=== PATIENT | male | born 1990 | race Hispanic/Latino ===

== ENCOUNTER 2016-09-04 19:39 | Emergency (ER) | payer OTHER ==
[2016-09-04] MEDS ORDERED: ONDANSETRON 4 MG ORAL DISINTEGRATING TAB (S0181) As Ordered ONE (21:52)
--- NOTE | 2016-09-04 22:00 | EDDOCDS ---
Nurse's Notes [facility] Name: Connor Benítez Age: 26 yrs Sex: Male : 1990 Arrival Date: 09/04/2016 Time: 19:39 Bed TR8 Private MD: DK MALLOY Diagnosis: Nausea and vomiting;Diarrhea, unspecified Presentation: 09/04 19:47 Presenting complaint: Patient states: "I think I have food poisoning." Pt reports ld5 vomiting for past 3 hours. Denies pain. "I just feel hot". Adult Sepsis Screening: The patient does not have new or worsening altered mentation. Patient's respiratory rate is less than 22. Systolic blood pressure is greater than 100. Patient has a qSOFA score of 0- Negative Sepsis Screen. Suicide/Homicide risk assessment- the patient denies having any suicidal and/or homicidal ideations and does not present with any other emotional, behavioral or mental health complaints. 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 Transition of care: patient was not received from another setting of care. 19:47 Acuity: TRAVIS Level 3 ld5 19:47 Method Of Arrival: Walkin/Carried/Asstd ld5 Triage Assessment: 19:48 General: Appears uncomfortable. Pain: Denies pain. HIV screening NA for this visit ld5 Offered previously. Neurological: Level of Consciousness is awake, alert. GI: Reports nausea, vomiting, since past 3 hours. Historical: - Allergies: no known allergies; - Home Meds: 1. none - PMHx: none; - PSHx: none; - Social history: Smoking status: Patient states was never smoker of tobacco. No barriers to communication noted, The patient speaks fluent Greenlandic, Speaks appropriately for age. - Family history: Not pertinent. - : The pt / caregiver states he / she is not on anticoagulants. Home medication list is obtained from the patient. - Exposure Risk Screening:: None identified. Screenin:58 Screening information is obtained from the patient. Fall risk: No risks identified. ld5 Assistance ADL's: requires no assistance with activities of daily living. Abuse/DV Screen: The patient / caregiver reports he/she is: not in a situation that causes fear, pain or injury. Nutritional screening: No deficits noted. Advance Directives: Currently, there is no health care proxy. home support is adequate. Assessment: 21:58 General: Appears in no apparent distress. Pain: Denies pain. Neurological: Level of ld5 Consciousness is awake, alert. Respiratory: Airway is patent Respiratory effort is even, unlabored. GI: Reports nausea, vomiting. Vital Signs: 19:42 BP 136 / 86; Pulse 86; Resp 16; Temp 97.6(O); Pulse Ox 100% ; Weight 73.94 kg; Height 5 cmb ft. 8 in. (172.72 cm); Pain 2/10; 19:42 Body Mass Index 24.78 (73.94 kg, 172.72 cm) cmb Vitals: 19:42 Log In Time: September 04, 2016 at 19:39. cmb ED Course: 19:41 Patient visited by Maria Del Rosario Ramos. cmb 19:41 DK MALLOY is Private Physician. cmb 19:41 Patient moved to Waiting cmb 19:42 Patient moved to Pre RCE cmb 19:47 Triage Initiated ld5 19:48 Patient visited by Mehreen Adam RN. ld5 21:27 Patient moved to Triage 2 cz 21:41 Alex Brown PA is PHCP. btw 21:41 Renzo Isaacs DO is Attending Physician. btw 21:42 Patient visited by Alex Brown PA. btw 21:54 DK MALLOY is Referral Physician. btw 21:58 The patient / caregiver is instructed regarding the plan of care and ED course. Patient ld5 has correct armband on for positive identification. 21:58 No IV's were initiated during this patient's visit. No procedures done that require ld5 assistance. 21:59 Patient moved to TR8 cz 22:00 Patient visited by Mehreen Adam,ROE. ld5 Administered Medications: 21:56 Drug: Ondansetron ODT (Peds >25kg) 4 mg [ondansetron 4 mg disintegrating tablet (1 cz tabs)] Route: PO; Order Results: There are currently no results for this order. Outcome: 21:55 Discharge ordered by Provider. btw 21:58 Discharge Assessment: Patient awake, alert and oriented x 3. No cognitive and/or ld5 functional deficits noted. Patient verbalized understanding of disposition instructions. patient administered narcotics - no. The following High Risk Discharge criteria are identified: None. Discharged to home ambulatory. Condition: stable. Discharge instructions given to patient, Instructed on discharge instructions, follow up and referral plans. medication usage, Demonstrated understanding of instructions, medications, Pt was receptive of discharge instructions/ teaching. Prescriptions given X 1. No special radiology studies were completed. Property :Personal belongings accompany Pt. 21:59 Patient left the ED. ld5 Signatures: Lyle Weinberg RN RN cz Alex Brown PA PA btw Dickerson, Laura, RN RN ld5 Maria Del Rosario Ramos MTDOlivia
--- NOTE | 2016-09-04 22:00 | EDDOCDS ---
Physician Documentation [facility] Name: Connor Benítez Age: 26 yrs Sex: Male : 1990 Arrival Date: 09/04/2016 Time: 19:39 Bed TR8 Private MD: DK MALLOY Disposition: 09/04/16 21:55 Discharged to Home/Self Care. Impression: Nausea and vomiting, Diarrhea, unspecified. - Condition is Stable. - Discharge Instructions: Viral Gastroenteritis, [id number]. - Prescriptions for ZOFRAN ODT 4 mg - dissolve 1 tablet by ORAL route 4 times per day As needed do not chew, do not swallow whole; 10 tablet. - Medication Reconciliation, Local Pharmacy Hours form. - Follow up: DK MALLOY; When: Call to arrange an appointment; Reason: Further diagnostic work-up, Recheck today's complaints, Continuance of care. - Problem is new. - Symptoms are unchanged. Historical: - Allergies: no known allergies; - Home Meds: 1. none - PMHx: none; - PSHx: none; - Social history: Smoking status: Patient states was never smoker of tobacco. No barriers to communication noted, The patient speaks fluent Kenyan, Speaks appropriately for age. - Family history: Not pertinent. - : The pt / caregiver states he / she is not on anticoagulants. Home medication list is obtained from the patient. - Exposure Risk Screening:: None identified. Vital Signs: 09/04 19:42 BP 136 / 86; Pulse 86; Resp 16; Temp 97.6(O); Pulse Ox 100% ; Weight 73.94 kg / 163.01 cmb lbs; Height 5 ft. 8 in. (172.72 cm); Pain 2/10; 19:42 Body Mass Index 24.78 (73.94 kg, 172.72 cm) cmb MDM: 21:48 Ondansetron ODT (Peds >25kg) Oral Disintegrating Tablet 4 mg PO once; 1 tab now and 1 btw in 6-8 hrs. x2 ordered. Administered Medications: 21:56 Drug: Ondansetron ODT (Peds >25kg) 4 mg [ondansetron 4 mg disintegrating tablet (1 cz tabs)] Route: PO; Signatures: WolfendenAlex PA PA btw Dickerson, Laura,RN RN ld5 Lyle Weinberg RN cz MTDD
--- NOTE | 2016-09-06 23:00 | EDDOCDS ---
Nurse's Notes [facility] Name: Connor Benítez Age: 26 yrs Sex: Male : 1990 Arrival Date: 09/04/2016 Time: 19:39 Bed TR8 Private MD: DK MALLOY Diagnosis: Nausea and vomiting;Diarrhea, unspecified Presentation: 09/04 19:47 Presenting complaint: Patient states: "I think I have food poisoning." Pt reports ld5 vomiting for past 3 hours. Denies pain. "I just feel hot". Adult Sepsis Screening: The patient does not have new or worsening altered mentation. Patient's respiratory rate is less than 22. Systolic blood pressure is greater than 100. Patient has a qSOFA score of 0- Negative Sepsis Screen. Suicide/Homicide risk assessment- the patient denies having any suicidal and/or homicidal ideations and does not present with any other emotional, behavioral or mental health complaints. Status: The patient is an active duty field services director. Transition of care: patient was not received from another setting of care. 19:47 Acuity: TRAVIS Level 3 ld5 19:47 Method Of Arrival: Walkin/Carried/Asstd ld5 Triage Assessment: 19:48 General: Appears uncomfortable. Pain: Denies pain. HIV screening NA for this visit ld5 Offered previously. Neurological: Level of Consciousness is awake, alert. GI: Reports nausea, vomiting, since past 3 hours. Historical: - Allergies: no known allergies; - Home Meds: 1. none - PMHx: none; - PSHx: none; - Social history: Smoking status: Patient states was never smoker of tobacco. No barriers to communication noted, The patient speaks fluent Uruguayan, Speaks appropriately for age. - Family history: Not pertinent. - : The pt / caregiver states he / she is not on anticoagulants. Home medication list is obtained from the patient. - Exposure Risk Screening:: None identified. Screenin:58 Screening information is obtained from the patient. Fall risk: No risks identified. ld5 Assistance ADL's: requires no assistance with activities of daily living. Abuse/DV Screen: The patient / caregiver reports he/she is: not in a situation that causes fear, pain or injury. Nutritional screening: No deficits noted. Advance Directives: Currently, there is no health care proxy. home support is adequate. Assessment: 21:58 General: Appears in no apparent distress. Pain: Denies pain. Neurological: Level of ld5 Consciousness is awake, alert. Respiratory: Airway is patent Respiratory effort is even, unlabored. GI: Reports nausea, vomiting. Vital Signs: 19:42 BP 136 / 86; Pulse 86; Resp 16; Temp 97.6(O); Pulse Ox 100% ; Weight 73.94 kg; Height 5 cmb ft. 8 in. (172.72 cm); Pain 2/10; 19:42 Body Mass Index 24.78 (73.94 kg, 172.72 cm) cmb Vitals: 19:42 Log In Time: September 04, 2016 at 19:39. cmb ED Course: 19:41 Patient visited by Maria Del Rosario Ramos. cmb 19:41 DK MALLOY is Private Physician. cmb 19:41 Patient moved to Waiting cmb 19:42 Patient moved to Pre RCE cmb 19:47 Triage Initiated ld5 19:48 Patient visited by Mehreen Adam RN. ld5 21:27 Patient moved to Triage 2 cz 21:41 Alex Brown PA is PHCP. btw 21:41 Renzo Isaacs DO is Attending Physician. btw 21:42 Patient visited by Alex Brown PA. btw 21:54 DK MALLOY is Referral Physician. btw 21:58 The patient / caregiver is instructed regarding the plan of care and ED course. Patient ld5 has correct armband on for positive identification. 21:58 No IV's were initiated during this patient's visit. No procedures done that require ld5 assistance. 21:59 Patient moved to TR8 cz 22:00 Patient visited by Mehreen Adam,ROE. ld5 09/05 00:07 Patient name changed from Connor\\S\\\\S\\Walkerrivera\\S\\ to Connor\\S\\Gurinder\\S\\Walkerrivera. EDMS 00:09 [facility] Payment Agreement was scanned into [employer] and attached to record. gjb 12:41 T-Sheet-- Draft Copy was scanned into [employer] and attached to record. gb Administered Medications: 09/04 21:56 Drug: Ondansetron ODT (Peds >25kg) 4 mg [ondansetron 4 mg disintegrating tablet (1 cz tabs)] Route: PO; Order Results: There are currently no results for this order. Outcome: 21:55 Discharge ordered by Provider. btw 21:58 Discharge Assessment: Patient awake, alert and oriented x 3. No cognitive and/or ld5 functional deficits noted. Patient verbalized understanding of disposition instructions. patient administered narcotics - no. The following High Risk Discharge criteria are identified: None. Discharged to home ambulatory. Condition: stable. Discharge instructions given to patient, Instructed on discharge instructions, follow up and referral plans. medication usage, Demonstrated understanding of instructions, medications, Pt was receptive of discharge instructions/ teaching. Prescriptions given X 1. No special radiology studies were completed. Property :Personal belongings accompany Pt. 21:59 Patient left the ED. ld5 Signatures: Dispatcher [employer] EDMS Lyle Weinberg, ROE RN cz Arleen Muir, Reg Reg Alex Gonzalez PA PA btw Mehreen Adam RN RN ld5 Maria Del Rosario Ramos Gabriela gjb Chart Complete [facility]ITALOlivia
--- NOTE | 2016-09-06 23:00 | EDDOCDS ---
Physician Documentation [facility] Name: Connor Benítez Age: 26 yrs Sex: Male : 1990 Arrival Date: 09/04/2016 Time: 19:39 Bed TR8 Private MD: DK MALLOY Disposition: 09/04/16 21:55 Discharged to Home/Self Care. Impression: Nausea and vomiting, Diarrhea, unspecified. - Condition is Stable. - Discharge Instructions: Viral Gastroenteritis, [id number]. - Prescriptions for ZOFRAN ODT 4 mg - dissolve 1 tablet by ORAL route 4 times per day As needed do not chew, do not swallow whole; 10 tablet. - Medication Reconciliation, Local Pharmacy Hours form. - Follow up: DK MALLOY; When: Call to arrange an appointment; Reason: Further diagnostic work-up, Recheck today's complaints, Continuance of care. - Problem is new. - Symptoms are unchanged. Historical: - Allergies: no known allergies; - Home Meds: 1. none - PMHx: none; - PSHx: none; - Social history: Smoking status: Patient states was never smoker of tobacco. No barriers to communication noted, The patient speaks fluent Dutch, Speaks appropriately for age. - Family history: Not pertinent. - : The pt / caregiver states he / she is not on anticoagulants. Home medication list is obtained from the patient. - Exposure Risk Screening:: None identified. Vital Signs: 09/04 19:42 BP 136 / 86; Pulse 86; Resp 16; Temp 97.6(O); Pulse Ox 100% ; Weight 73.94 kg / 163.01 cmb lbs; Height 5 ft. 8 in. (172.72 cm); Pain 2/10; 19:42 Body Mass Index 24.78 (73.94 kg, 172.72 cm) cmb MDM: 21:48 Ondansetron ODT (Peds >25kg) Oral Disintegrating Tablet 4 mg PO once; 1 tab now and 1 btw in 6-8 hrs. x2 ordered. 09/05 00:09 [facility] Payment Agreement was scanned into [employer] and attached to record. b 00:09 Financial registration complete. gjb 12:41 T-Sheet-- Draft Copy was scanned into [employer] and attached to record. gb Administered Medications: 09/04 21:56 Drug: Ondansetron ODT (Peds >25kg) 4 mg [ondansetron 4 mg disintegrating tablet (1 cz tabs)] Route: PO; Signatures: Arleen Muir, Reg Reg gb Alex Brown PA PA btw Dickerson, Laura, RN RN [email or web address] Tereza Tavares Calvin RN cz The chart was reviewed and I authenticate all verbal orders and agree with the evaluation and treatment provided.Attachments: 09/05 00:09 [facility] Payment Agreement richard 12:41 T-Sheet-- Draft Copy Chart Complete MTDD
--- NOTE | 2016-09-06 23:00 | EDDOCDS ---
Physician Documentation [facility] Name: Connor Benítez Age: 26 yrs Sex: Male : 1990 Arrival Date: 09/04/2016 Time: 19:39 Bed TR8 Private MD: DK MALLOY Disposition: 09/04/16 21:55 Discharged to Home/Self Care. Impression: Nausea and vomiting, Diarrhea, unspecified. - Condition is Stable. - Discharge Instructions: Viral Gastroenteritis, [id number]. - Prescriptions for ZOFRAN ODT 4 mg - dissolve 1 tablet by ORAL route 4 times per day As needed do not chew, do not swallow whole; 10 tablet. - Medication Reconciliation, Local Pharmacy Hours form. - Follow up: DK MALLOY; When: Call to arrange an appointment; Reason: Further diagnostic work-up, Recheck today's complaints, Continuance of care. - Problem is new. - Symptoms are unchanged. Historical: - Allergies: no known allergies; - Home Meds: 1. none - PMHx: none; - PSHx: none; - Social history: Smoking status: Patient states was never smoker of tobacco. No barriers to communication noted, The patient speaks fluent Czech, Speaks appropriately for age. - Family history: Not pertinent. - : The pt / caregiver states he / she is not on anticoagulants. Home medication list is obtained from the patient. - Exposure Risk Screening:: None identified. Vital Signs: 09/04 19:42 BP 136 / 86; Pulse 86; Resp 16; Temp 97.6(O); Pulse Ox 100% ; Weight 73.94 kg / 163.01 cmb lbs; Height 5 ft. 8 in. (172.72 cm); Pain 2/10; 19:42 Body Mass Index 24.78 (73.94 kg, 172.72 cm) cmb MDM: 21:48 Ondansetron ODT (Peds >25kg) Oral Disintegrating Tablet 4 mg PO once; 1 tab now and 1 btw in 6-8 hrs. x2 ordered. 09/05 00:09 [facility] Payment Agreement was scanned into [employer] and attached to record. b 00:09 Financial registration complete. gjb 12:41 T-Sheet-- Draft Copy was scanned into [employer] and attached to record. gb Administered Medications: 09/04 21:56 Drug: Ondansetron ODT (Peds >25kg) 4 mg [ondansetron 4 mg disintegrating tablet (1 cz tabs)] Route: PO; Signatures: Arleen Muir, Reg Reg gb Alex Brown PA PA btw Dickerson, Laura, RN RN [email or web address] Tereza Tavares Calvin RN cz The chart was reviewed and I authenticate all verbal orders and agree with the evaluation and treatment provided.Attachments: 09/05 00:09 [facility] Payment Agreement richard 12:41 T-Sheet-- Draft Copy Chart Complete MTDD
== END 2016-09-04 21:59 | disposition home or self-care (01) ==
LOC: M ED 19:39
DX: R11.2 Nausea with vomiting, unspecified (principal); R19.7 Diarrhea, unspecified

== ENCOUNTER → 2017-04-08 | Outpatient (CLI) | payer OTHER ==
--- NOTE | 2017-04-08 14:09 | REP ---
BILATERAL MAMMOGRAM: Bilateral mammography performed in the MLO and CC projections. The patient has a history of palpable left retroareolar abnormality for the past 4 months. The mammogram shows asymmetric fibroglandular tissue in the left retroareolar region compatible with asymmetric gynecomastia. No suspicious mass or clustered microcalcifications are seen. IMPRESSION: ACR 2 benign. Asymmetric gynecomastia left breast. No suspicious mass or clustered microcalcifications. BI-RADS/ACR category 2 mammogram. Benign finding(s). Routine annual screening mammography (for women over age 40). This mammogram was interpreted with the aid of an FDA-approved computer-aided detection system. The patient states she/he had a clinical breast exam in March 2017. Patent letter [id number]. Signed by Man Alex MD 04/08/2017 05:12 P
== END ==
LOC: M RAD 13:31
PROVIDERS: ATTEND Physician Assistant
DX: N63 Unspecified lump in breast (principal)